=== PATIENT | male | born 1960 | race African-American/Black ===

== ENCOUNTER → 2017-02-21 | Outpatient (CLI) | payer OTHER | LOC: CIMAGING 08:06 | PROVIDERS: ATTEND Physician Assistant | DX: R16.0 Hepatomegaly, not elsewhere classified (principal); R10.11 Right upper quadrant pain | CPT/HCPCS: 76700-PO ==

== ENCOUNTER → 2017-02-28 | Outpatient (CLI) | payer OTHER ==
[~2017-02-28] MED LIST: IOPAMIDOL (ISOVUE-300) 100 ML BTL ONE
== END ==
LOC: FIMAGING 08:44
PROVIDERS: ATTEND Registered Nurse General Practice
DX: D18.03 Hemangioma of intra-abdominal structures (principal)
CPT/HCPCS: Q9967

== ENCOUNTER → 2017-10-31 | Outpatient (CLI) | payer OTHER | LOC: BMCIMAGING 12:25 | PROVIDERS: ATTEND Emergency Medicine | DX: J40 Bronchitis, not specified as acute or chronic (principal) ==

== ENCOUNTER → 2018-10-19 | Outpatient (CLI) | payer OTHER | LOC: BMCIMAGING 16:51 ==